=== PATIENT | female | born 1970 | race Caucasian/White ===

== ENCOUNTER 2017-01-11 17:59 | Emergency (ER) | payer SELFPAY ==
[~2017-01-11] VITALS: Ht 160 cm; Wt 76.1 kg
[~2017-01-11 17:59] MED LIST: BACTRIM,SEPT1 TABLET PO; CIPRO500 MG PO; CLINDAMYCIN HC300 MG PO; ENDOCET 5-3251 EACH PO; KEFLEX500 MG PO; NOHOMEMEDS; NORCO 5/3251 TABLET PO; PANTOPRAZOLE SO40 MG PO; PERCOCET 5/31 TABLET PO; TYLENOL WITH C1 EACH PO; ULTRAM50 MG PO; ZANTAC150 MG PO; ZOFRAN ODT8 MG PO; ZOFRAN4 MG PO
[2017-01-11 18:53] LABS: HEMATOCRIT 44.2 % (36.0-46.0); MCH 32.8 PG (29.0-34.0); MCHC 33.9 G/DL (30.0-36.0); MCV 96.7 FL (83-99); MEAN PLAT.VOLUME 8.6 uM^3 (9.5-12.4); PLATELET COUNT 414 K/uL (156-360); RBC DIS.WIDTH-CV 12.5 % (11.8-14.6); RBC DIS.WIDTH-SD 45.1 % (39-53); RED BLOOD COUNT 4.57 M/uL (3.80-5.20)
[2017-01-11 19:01] LABS: CHLORIDE 103 mEq/L (99-109); POTASSIUM 4.7 mEq/L (3.7-5.4); SODIUM 139 mEq/L (136-147)
[2017-01-11 19:03] LABS: GLUCOSE 96 mg/dL (70-99)
[2017-01-11 19:04] LABS: ANION GAP 8 MEQ/L (2-14)
[2017-01-11 19:05] LABS: TOTAL BILIRUBIN 0.3 mg/dL (0.0-1.0)
[2017-01-11 19:06] LABS: ALKALINE PHOSPHATASE 47 IU/L (3-129)
[2017-01-11 19:07] LABS: GFR ESTIMATE (CALCULATED) 51 mL/min/
[2017-01-11 19:08] LABS: UREA NITROGEN (BUN) 10 mg/dL (9-23)
[2017-01-11 19:10] LABS: LIPASE 8 U/L (1.0-51.0)
[2017-01-11 19:18] LABS: QUANTITATIVE HCG < 4.0 MIU/ML
[2017-01-11] MEDS ORDERED: NORCO 5/3251 TABLET PO (20:43)
[2017-01-11] MEDS ORDERED: CARAFATE1 GM PO (20:43)
[2017-01-11] MEDS ORDERED: OMEPRAZOLE40 M1 PO (20:43)
[2017-01-11 21:16] VITALS: BP 133/76
== END 2017-01-11 21:17 | disposition home or self-care (01) ==
LOC: EME 17:59 → EXP 17:59
DX: R10.13 Epigastric pain (principal); Z87.11 Personal history of peptic ulcer disease; Z73.3 Stress, not elsewhere classified; F17.200 Nicotine dependence, unspecified, uncomplicated
CPT/HCPCS: 80053; 81003; 83690; 84702; 85027; 99281; 99284